=== PATIENT | male | born 1955 | race Caucasian/White ===

== ENCOUNTER → 2018-12-25 | Outpatient (REF) | payer MEDICARE, OTHER ==
[2017-05-07 10:27] VITALS: BMI 31.3
[~2018-12-25] MED LIST: ASPI-1471 PO; ASPI-757 PO; ATOR20TA22 PO; AZIT-1 PO; AZIT500T44 PO; BUTA1TAB14 PO; CYCL10TA29 PO; DIAZ-308 PO; FENT-23 TD; GABA-549 PO; GUAI600T31 PO; HYDR-654 PO; HYDR10TA3 PO; IBUP-136 PO; LOR5/325 PO; LORA-1455 PO; MYCO500T28 PO; NOR10 PO; OMEP-137 PO; PENT400T57 PO; PER PO; POLYETHYLENE G500 G1 MC; VITA-197 PO; [UNRECOGNIZED DRUG - CODE] PO
== END ==
LOC: ZZSENDIN 10:13
PROVIDERS: ATTEND Orthopaedic Surgery
DX: M25.561 Pain in right knee (principal); R22.41 Localized swelling, mass and lump, right lower limb; B95.61 Methicillin susceptible Staphylococcus aureus infection as the cause of diseases classified elsewhere
CPT/HCPCS: 87071; 87073; 87077; 87186; 87205; 89050; 89060

== ENCOUNTER 2018-12-28 16:52 | Inpatient (IN) | payer MEDICARE, OTHER ==
[2018-12-28] VITALS (9 sets, daily range): BP systolic 103–128; BP diastolic 65–76
[~2018-12-28] VITALS: Ht 182.9 cm; Wt 106.6 kg
[~2018-12-28 16:52] MED LIST changes: -ASPI81TA94 PO; +CELECOXIB 200 MG CAP PO ONE; -DICL500C66 PO; +FAMOTIDINE 20 MG TAB PO ONE; -HYDR-385 PO; +LIDOCAINE/SOD BICARB 8.4% SYR ID ONE; +MIDAZOLAM 2 MG/2 ML VIAL IVP PRN; -MYCO500T28 PO; -NOR10 PO; +NORMOSOL R SOLN(*) 1000 ML BAG 1,000 ML IV PRN; -SULF-198 PO; +ceFAZolin(*) 2GM/D5W 50ML 50 ML IVPB ONE
[2018-12-28] MEDS ORDERED: MYCO500T28 PO (17:34)
[2018-12-28] MEDS ORDERED: NOR10 PO (17:34)
[2018-12-28] MEDS ORDERED: DIAZEPAM 5 MG TAB PO PRN (19:35)
[2018-12-28] MEDS ORDERED: ACETAMINOPHEN 325 MG TAB PO PRN (19:35)
[2018-12-28] MEDS ORDERED: BISACODYL 10 MG SUPP PR PRN (19:35)
[2018-12-28] MEDS ORDERED: MAGNESIUM HYDROXIDE* 30ML UDCP PO PRN (19:35)
[2018-12-28] MEDS ORDERED: BENZOCAINE/MENTHOL 1 EACH LOZG PO PRN (19:35)
[2018-12-28] MEDS ORDERED: PROMETHAZINE 25 MG/ML 1 ML AMP IVP PRN (19:35)
[2018-12-28] MEDS ORDERED: MORPHINE 2 MG/ML SYR IVP PRN (19:35)
[2018-12-28] MEDS ORDERED: ZOLPIDEM TARTRATE 5 MG TAB PO PRN (19:35)
[2018-12-28] MEDS ORDERED: APAP/HYDROCODONE 325/7.5 TAB PO PRN (19:35)
[2018-12-28] MEDS ORDERED: FLUSH 10 ML SYR IVP PRN (19:35)
[2018-12-28] MEDS ORDERED: NORMOSOL R SOLN(*) 1000 ML BAG 1,000 ML IV PRN (19:35)
[2018-12-28] MEDS ORDERED: diphenhydrAMINE 25 MG CAP PO PRN (19:35)
[2018-12-28] MEDS ORDERED: diphenhydrAMINE 50 MG/ML VIAL IVP PRN (19:35)
[2018-12-28] MEDS ORDERED: fentaNYL CITR 100 MCG/2 ML AMP ONE (19:58)
[2018-12-29] VITALS (7 sets, daily range): BP systolic 98–121; BP diastolic 60–72; Ht 182.9 cm; Wt 106.6 kg
--- NOTE | 2018-12-29 00:19 | Hospitalist Consultation ---
History of Present Illness Requesting Physician Dr. Cruz Reason for Consult Infected knee History of Present Illness This patient was admitted for incision and drainage of an infected right knee. History Problems: (1) Status post knee replacement Status: Acute (2) Neuropathy Status: Chronic (3) GERD (gastroesophageal reflux disease) Status: Chronic Home Meds Reported Medications Mycophenolate Mofetil (MYCOPHENOLATE MOFETIL) 500 Mg Tablet, 1500 MG PO BID 12/28/18 Nortriptyline Hcl (NORTRIPTYLINE HCL) 10 Mg Cap, 20 MG PO HS, CAP 12/28/18 Aspirin (ASPIR 81) 81 Mg Tablet.dr, 81 MG PO QDAY, TAB 07/03/17 Hydroxyzine Hcl (HYDROXYZINE HCL) 10 Mg Tablet, 10 MG PO PRN 04/29/17 Magnesium Oxide (MAGNESIUM OXIDE) 420 Mg Tablet, 420 MG PO QODAY 04/29/17 Atorvastatin Calcium (LIPITOR) 20 Mg Tablet, 0.5 TAB PO QHS, TAB 04/29/17 Omeprazole (OMEPRAZOLE) 20 Mg Tablet.dr, 20 MG PO QDAY, TAB 04/29/17 Gabapentin (GABAPENTIN) 300 Mg Capsule, 900 MG PO TID, CAPSULE 04/29/17 Discontinued Reported Medications Hydrocodone Bit/Acetaminophen (NORCO 7.5-325 TABLET) 1 Each Tablet, 1-2 EACH PO Q4-6H PRN for PAIN, #80 05/08/17 Diazepam (DIAZEPAM) 5 Mg Tablet, 5 MG PO Q6-8H PRN for SPASMS, #30 TAB TAKE NEEDED FOR SPASMS, PAIN, ANXIETY 05/08/17 Butalb/Acetaminophen/Caff 50-325-40 Mg (FIORICET 50-325-40) 1 Each Tablet, 1 TAB PO Q4H PRN for headache, TAB 05/06/17 Cyclobenzaprine Hcl (CYCLOBENZAPRINE HCL) 10 Mg Tablet, 10 MG PO PRN, TAB 04/29/17 Discontinued Scripts Azithromycin (ZITHROMAX) 250 Mg Tablet, 1 TAB PO QDAY, #4 TAB 0 Refills Prov:KEEGAN CHANEL MD 07/03/17 Allergies: Coded Allergies: No Known Drug Allergies (Unverified , 12/28/18) Patient History: FH: cancer GRANDPARENTS FH: heart disease GRANDPARENTS FHx: Alzheimer's disease GRANDPARENTS FHx: diabetes mellitus GRANDPARENTS FHx: stroke GRANDPARENTS Hx Smoking: Yes (QUIT 12/2008, SMOKED 200 CIGARS FROM AGE 18 TO 2009) Smoking Status: Former Smoker When Quit Tobacco?: 2008 Caffeine Intake: Coffee, Tea Caffeine/Cups Per Day: 4 CPD COFFEE, 3 -16 OZ TEA Hx Alcohol Use: Yes Hx Substance Use Disorder: No Social Drug Use: Never Review of Systems All Systems Reviewed/Normal: Yes Exam Vital Signs Vital Signs Date Time Temp Pulse Resp B/P (MAP) Pulse Ox O2 Delivery O2 Flow Rate FiO2 12/28/18 20:15 84 16 95 12/28/18 17:23 Nasal Cannula 2.0 12/28/18 17:23 99.4 128/73 (91) Cardiovascular: Regular Rate and Rhythm Respiratory: Clear to Auscultation Assessment and Plan Problems: (1) Infection of right knee Assessment & Plan: He did undergo incision and drainage. A culture from 12/25 grew MSSA. He had been on dicloxacillin as an outpatient. He is currently on receiving his post operative Ancef. We will place him on clindamycin. (2) Neuropathy Status: Chronic Assessment & Plan: He is on chronic treatment with gabapentin. (3) GERD (gastroesophageal reflux disease) Status: Chronic Assessment & Plan: He is on chronic treatment with Prilosec. Venous Thromboembolism Antithrombotics Is Pt On Any Antithrombotics?: No CASSIDY AVALOS DO December 29, 2018 00:18
[2018-12-29] MEDS: IBUPROFEN 800 MG TAB PO SCH ×3 (01:44→17:15)
[2018-12-29] MEDS: CLINDAMYCIN(*) 600 MG/NS 50 ML 50 ML IVPB SCH ×3 (01:44→17:23)
[2018-12-29] MEDS: GABAPENTIN 300 MG CAP PO SCH ×4 (01:44→22:01)
[2018-12-29] MEDS: ceFAZolin(*) 1 GM VIAL 1 GM in NS(*) 0.9% 100 ML MINI-BAG 100 ML IVPB SCH ×3 (02:30→18:01)
--- NOTE | 2018-12-29 05:26 | LEVENE H&P ---
DATE OF ADMISSION: December 28, 2018 IDENTIFICATION/CHIEF COMPLAINT Suhail is a 63-year-old gentleman with a chief complaint of right knee pain and swelling. HISTORY OF PRESENT ILLNESS Patient is status post knee arthroplasty a year and seven months ago. Last week, he developed pain after kneeling, had a small abrasion on the front of the knee associated with erythema. He denies systemic signs of illness. He was seen in the clinic Friday and diagnosed with a bursitis. Fluid was aspirated from the bursa, yielding Staphylococcus aureus on culture. He has been placed empirically, before cultures were obtained, on dicloxacillin, but has had worsening of the knee pain and swelling over the course of the weekend. Surgery is indicated at this time to eradicate infection and prevent spread of the infection from his bursa deep to his knee joint and the implant. PAST MEDICAL HISTORY Notable for migraine headaches, gout, neck and back problems, history of head and neck cancer. PAST SURGICAL HISTORY Notable for head and neck operation as well as knee arthroplasty. ALLERGIES No known drug allergies. CURRENT MEDICATIONS 1. An immunosuppressive drug, the name of which he does not recall. 2. Gabapentin 300 mg p.o. t.i.d. 3. Aspirin 81 mg p.o. daily. 4. Omeprazole 20 mg p.o. daily. 5. Atorvastatin 20 mg p.o. daily. SOCIAL HISTORY Negative for tobacco use. He quit in 2008 after smoking since 1975. He drinks beer twice a week. He denies alcohol abuse, denies drug use. REVIEW OF SYSTEMS Otherwise noncontributory. PHYSICAL EXAMINATION GENERAL: This is a well-developed, well-nourished male who appears stated age. HEENT: Normocephalic, atraumatic. NECK: Supple. LUNGS: Clear. HEART: Regular. ABDOMEN: Soft. ORTHOPEDIC: There are prepatellar edema and bursal effusion. There does not appear to be a knee joint effusion. There is some erythema associated, some increased warmth. The knee joint itself has satisfactory range of motion without reproduction of pain, except to knee flexion. Gross stability is good. Calves nontender. Neurovascular function intact. Prior radiographs demonstrate well-fixed and well-aligned knee arthroplasty with no implant loosening, migration or failure. ASSESSMENT Right septic prepatellar bursitis with Staphylococcus aureus. PLAN We will proceed with irrigation and debridement of the bursa. Alternatives including aspiration and ongoing antibiotic treatment are discussed, but given the proximity to the knee replacement, I think at this point he is best served with surgical care, given his failure to respond to oral antibiotics and prior aspiration. He agrees and would like to proceed. The nature of the procedure, risks, benefits, and anticipated rehab course are outlined. Risks include but are not limited to , major medical or anesthetic complications, persistent, recurrent, or worsening infection, spread to the knee joint, need for additional surgery and other unforeseen. He understands and wishes to proceed. A signed permit was placed in the chart. No guarantees were given or implied. JOCELYN
[2018-12-29] MEDS: PANTOPRAZOLE SOD 20 MG TABEC PO SCH (06:23)
--- NOTE | 2018-12-29 08:12 | OPERATIVE REPORT 1 ---
EVENT DATE: December 28, 2018 SURGEON: Edilberto Cruz MD ANESTHESIOLOGIST: Nirav Ramírez MD ANESTHESIA: General. CORDUROY CUTTING SUPERVISOR: KENDRA Rodgers PREOPERATIVE DIAGNOSIS Septic right prepatellar bursa, status post remote total knee arthroplasty with no evidence of deep infection. POSTOPERATIVE DIAGNOSIS Septic right prepatellar bursa, status post remote total knee arthroplasty with no evidence of deep infection. PROCEDURE PERFORMED Irrigation and debridement of right knee prepatellar bursa with bursectomy. ESTIMATED BLOOD LOSS Minimal. DRAINS Hemovac x2. SPECIMENS Swab sent for stat gram stain, culture and sensitivity. COMPLICATIONS None apparent. TOURNIQUET TIME 28 minutes. IMPLANTS USED None. 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 In the last several days, developed small abrasion and evidence of a septic prepatellar bursa. Aspirate in the clinic on Friday has yielded staph aureus. He has failed to improve on oral antibiotics. Surgery is indicated at this time to eradicate the infection and to minimize risks of spread to deeper tissues. DESCRIPTION OF PROCEDURE Patient was taken to the operating room and placed supine on the operating table. General anesthesia was induced. Right lower extremity was prepped and draped in the usual sterile fashion for orthopedic surgery. The limb was exsanguinated for gravity exsanguination and then tourniquet inflated to 250. The central portion of the incision was opened in the midline and serosanguineous fluid exudes from the bursa. The bursa is thickened and inflamed. The bursa is excised circumferentially, dissecting around the margins with tenotomy scissors and a provisional lavage performed. Deep sutures in the retinaculum, which were permanent #2 Ethibond sutures, were subsequently removed. There was no evidence of any breech of the retinaculum or deep infection. The knee cycled aggressively to make sure that no deep fluid exudes through any unrecognized pinpoint hole in the retinaculum and none does. Additionally, curettage and further debridement of the bursal space is performed. Additional bursal debrider removed. The wound is lavaged with 6L total of saline with pulse lavage. Nice clean appearance observed. Ropivacaine is distended into the wound edges. Tourniquet is deflated. Hemostasis assured. Two deep Hemovac drains were placed and closure with 2-0 Nylon vertical mattress sutures. Xeroform, 4x4 sterile dressing and a knee immobilizer. The patient was awakened from anesthesia and taken to the recovery room in stable condition, having tolerated the procedure well. PLAN IV Ancef pending Infectious Disease recommendations. Cultures sent for stat gram stain, culture and sensitivity. [facility]
[2018-12-29] MEDS ORDERED: MYCOPHENOLATE MOFETIL 1500 MG PO SCH (09:00)
[2018-12-29] MEDS ORDERED: MYCOPHENOLATE 500 MG TAB PO SCH (09:00)
[2018-12-29] MEDS: ASPIRIN 325 MG TAB PO SCH (09:10)
--- NOTE | 2018-12-29 11:02 | Hospitalist Progress Note ---
Subjective Progress Notes Subjective He was admitted s/p I&D of the right knee. He had no acute events overnight. Patient Complains of: Cardiovascular: No: Chest Pain Respiratory: No: Shortness of Breath Physical Exam Vital Signs Date Time Temp Pulse Resp B/P (MAP) Pulse Ox O2 Delivery O2 Flow Rate FiO2 12/29/18 07:43 79 94 Nasal Cannula 1.0 12/29/18 07:10 97.7 16 101/70 (80) Intake and Output 12/29/18 01:00 Intake Total 1400 ml Balance 1400 ml Intake Oral 100 ml IV Total 1300 ml # Voids 1 General Appearance: Alert, Awake, No Acute Distress, Afebrile Neuro: No Gross deficits Cardiovascular: Regular Rate and Rhythm Respiratory: No Respiratory Distress, Clear to Auscultation GI: Soft and Non-Tender Musculoskeletal: Other (knee immobilizer present to right knee) Psych: Alert & Oriented X3, Appropriate Mood & Affect Assessment and Plan Problems: (1) Infection of right knee Assessment & Plan: He did undergo incision and drainage. A culture from 12/25/18 grew MSSA. He had been on dicloxacillin as an outpatient. He is currently on receiving his post operative Ancef. We will place him on clindamycin. (2) Neuropathy Status: Chronic Assessment & Plan: He is on chronic treatment with gabapentin. (3) GERD (gastroesophageal reflux disease) Status: Chronic Assessment & Plan: He is on chronic treatment with Prilosec. Exam Sepsis Risk: No Definite Risk LALY PERSAUD December 29, 2018 11:02
--- NOTE | 2018-12-29 11:09 | NUR ---
Physical Therapy Impression PT eval complete. Pt met all PT goals with initial visit and is safe to d/c home from a mobility standpoint when medically appropriate. PT instruction for chao/doff knee immobilizer in bed prior to mobility. Pt is I) with bed mobility, Rashi for transfers and ambulation with and without RW. Pt with with no significant difference in gait pattern with RW and pt reporting no pain with ambulation. PT instruction for stair negotiation, pt completed asc/desc 7 stairs with railing and Rashi. SpO2 dropped to 74% on room air with mobility, returned to WNL on 2L O2. Pt is safe to be I) in room and acuña, rec that he utilize RN assist for O2 management as needed. No further PT visits planned at this time. Physical Therapy Goals 1: Pt to complete bed mobiltiy with I) 2: Pt to complete transfers with Rashi and appropriate AD 3: Pt to ambulate 150' with Rashi and appropriate AD 4: Pt to asc/desc 7 stairs with railing and Rashi Patient's Goals
[2018-12-29] MEDS ORDERED: MYCOPHENOLATE 500 MG TAB PO ONE (11:50)
[2018-12-29] MEDS: MYCOPHENOLATE 500 MG TAB PO SCH (16:25)
[2018-12-29] MEDS ORDERED: ATORVASTATIN 10 MG TAB PO SCH (21:00)
[2018-12-29] MEDS ORDERED: NORTRIPTYLINE HCL 10 MG CAP PO SCH (21:00)
[2018-12-30] MEDS: CLINDAMYCIN(*) 600 MG/NS 50 ML 50 ML IVPB SCH ×2 (01:32→09:35)
[2018-12-30] MEDS: IBUPROFEN 800 MG TAB PO SCH ×2 (01:32→09:35)
[2018-12-30 02:02] VITALS: BP 106/67
[2018-12-30] MEDS: PANTOPRAZOLE SOD 20 MG TABEC PO SCH (06:12)
[2018-12-30] MEDS: MYCOPHENOLATE 500 MG TAB PO SCH (07:11)
[2018-12-30 07:13] VITALS: BP 106/69
[2018-12-30] MEDS ORDERED: SULF-198 PO (09:12)
[2018-12-30] MEDS ORDERED: DICL500C66 PO (09:12)
[2018-12-30] MEDS ORDERED: HYDR-385 PO (09:12)
[2018-12-30] MEDS: ASPIRIN 325 MG TAB PO SCH (09:35)
[2018-12-30] MEDS: GABAPENTIN 300 MG CAP PO SCH (09:35)
[2018-12-30] MEDS ORDERED: ASPI-757 PO (09:44)
--- NOTE | 2018-12-30 09:46 | Hospitalist Progress Note ---
Subjective Progress Notes Subjective HUONG overnight, doing well this am. Medically stable for d/c at ortho discretion. Physical Exam Vital Signs Date Time Temp Pulse Resp B/P (MAP) Pulse Ox O2 Delivery O2 Flow Rate FiO2 12/30/18 07:24 82 12/30/18 07:13 98.0 74 16 106/69 (81) Nasal Cannula 1.0 Intake and Output 12/30/18 07:00 Intake Total 1729.2 ml Output Total 70 ml Balance 1659.2 ml Intake Oral 1400 ml IV Total 329.2 ml Output Drainage Total 70 ml # Voids 3 # Bowel Movements 2 General Appearance: Alert, Awake, No Acute Distress Cardiovascular: Normal Rhythm & Peripheral Pulses Respiratory: No Respiratory Distress Extremities: Soft and Non Tender, Warm, Pulses, Perfused Assessment and Plan Problems: (1) Infection of right knee Assessment & Plan: He did undergo incision and drainage. A culture from 12/25/18 grew MSSA. He had been on dicloxacillin as an outpatient. He is currently on receiving his post operative Ancef. We will place him on clindamycin. (2) Neuropathy Status: Chronic Assessment & Plan: He is on chronic treatment with gabapentin. (3) GERD (gastroesophageal reflux disease) Status: Chronic Assessment & Plan: He is on chronic treatment with Prilosec. Exam Sepsis Risk: No Definite Risk ALVARADO AUGUSTO ZAVALA DO December 30, 2018 09:46
[2018-12-30] MEDS ORDERED: ASPI81TA94 PO (09:51)
== END 2018-12-30 10:42 | disposition home or self-care (01) | DRG 502 ==
LOC: OR 16:52 → MED 20:15 → OBSVTOIN 20:15 → INTOOBSV 20:15 → OR 21:32
PROVIDERS: ADMIT Orthopaedic Surgery; ATTEND Orthopaedic Surgery
PROC: 3E1U38Z Irrigation of Joints using Irrigating Substance, Percutaneous Approach (ICD-10-PCS; 2018-12-28)
PROC: 0MTN0ZZ Resection of Right Knee Bursa and Ligament, Open Approach (ICD-10-PCS; principal; 2018-12-28 18:02)
DX: M00.061 Staphylococcal arthritis, right knee (principal); K21.9 Gastro-esophageal reflux disease without esophagitis; Z96.651 Presence of right artificial knee joint; Z87.891 Personal history of nicotine dependence; Z86.19 Personal history of other infectious and parasitic diseases; G62.9 Polyneuropathy, unspecified
CPT/HCPCS: 36415; 82040; 82247; 82310; 82374; 82435; 82565; 82947; 84075; 84132; 84155; 84295; 84450; 84460; 84520; 85025; 87071; 87073; 87077; 87186; 87205; 93005; 97161; J0690; J3010; J3490

== ENCOUNTER → 2018-12-28 | Outpatient (CLI) | payer MEDICARE, OTHER ==
[2017-05-07 10:27] VITALS: BMI 31.3
[~2018-12-28] MED LIST changes: +ASPI81TA94 PO; +DICL500C66 PO; +HYDR-385 PO; +SULF-198 PO
[2018-12-28 17:02] LABS: PLATELET COUNT, AUTOMATED 371 K/uL (150-450)
--- NOTE | 2018-12-28 17:27 | EKG ---
[place]AC[place] [facility] [place] NAME: JEREMI WHALEN : [id number] MR: [id number] V: [id number] EXAM DATE: ORDERING PHYSICIAN: FERNANDA AYALA TECHNOLOGIST: NEW Peters Reason : PRE-OP Blood Pressure : / mmHG Vent. Rate : 086 BPM Atrial Rate : 086 BPM P-R Int : 142 ms QRS Dur : 102 ms QT Int : 362 ms P-R-T Axes : 052 030 042 degrees QTc Int : 433 ms Normal sinus rhythm Possible Left atrial enlargement Incomplete right bundle branch block Borderline ECG When compared with ECG of 03-JUL-2017 09:56, No significant change was found Confirmed by CASSIDY AVALOS ([id number]) on 12/28/2018 7:06:28 PM Referred By: LUCY Confirmed By:CASSIDY AVALOS
[2018-12-28 20:23] VITALS: BP 95/61
== END ==
LOC: LAB 16:27
PROVIDERS: ATTEND Anesthesiology
DX: Z01.812 Encounter for preprocedural laboratory examination (principal); Z01.810 Encounter for preprocedural cardiovascular examination
CPT/HCPCS: 36415; 82040; 82247; 82310; 82374; 82435; 82565; 82947; 84075; 84132; 84155; 84295; 84450; 84460; 84520; 85025; 93005